=== PATIENT | female | born 1970 | race Caucasian/White ===

== ENCOUNTER → 2018-01-02 | Outpatient (CLI) | payer MEDICARE, OTHER ==
[~2018-01-02] MED LIST: ACEBUTCAFT PO; ACET500 PO; ALBU90OI PO; AMOCLA875 PO; ASPI81CH PO; AZIT250 PO; Advair Hfa 230-12 GM; BUPAP 50 MG-301 EACH PO; CEFU500T30 PO; Coumadin6 MG PO; DIAZ10 PO; DIAZ5 PO; DOCU100 PO; Diazepam10 MG PO; ENOX100I SC; Esgic Tablet1 EACH PO; FLUSAL2505 INH; FLUT1DIS5 INH; GABA300 PO; HYDHCL25 PO; HYDMOR2 PO; Ibuprofen Ib200 MG PO; LAVAP17G PO; LEVSOD125 PO; LEVSOD50 PO; LEVSOD75 PO; LIOT5 PO; LOVA40 PO; METR500 PO; Neurontin800 MG PO; OMEP20ER PO; OXYACE5T PO; PRAZOSIN PO; PRED20 PO; PROVERA PO; Percocet 5-3251 EACH PO; Prednisone20 MG PO; Prilosec Otc20 MG PO; QUET100 PO; QUET200 PO; QUET25 PO; ROXICODONE5 MG PO; TETR250 PO; TOPI25 PO; TOPI50 PO; TRAM50 PO; TRAZ50 PO; TRIA80TC TOP; WARF10 PO; XARELTO20 MG PO; Zofran Odt4 MG SL
== END ==
LOC: LAB SHORT 10:00 → LAB 10:00 → LAB FUT 01-01 10:15
DX: Z13.1 Encounter for screening for diabetes mellitus (principal); K62.5 Hemorrhage of anus and rectum; R19.7 Diarrhea, unspecified; E03.9 Hypothyroidism, unspecified; E78.2 Mixed hyperlipidemia
CPT/HCPCS: 87015; 87045; 87046; 87205; 87338; 87899

== ENCOUNTER 2018-01-13 21:30 | Emergency (ER) | payer MEDICARE, OTHER ==
[~2018-01-13] VITALS: Ht 160 cm; Wt 81.7 kg
[~2018-01-13 21:30] MED LIST changes: -AZIT250 PO; -Advair Hfa 230-12 GM; -CEFU500T30 PO; -Esgic Tablet1 EACH PO; -FLUT1DIS5 INH; -METR500 PO; -PRED20 PO; -TETR250 PO; -Zofran Odt4 MG SL
[2018-01-13 22:11] LABS: BASOPHILS ABSOLUTE AUTO 0.04 K/mm3 (0.00-0.23); BASOPHILS PERCENT AUTO 1 % (0-2); EOSINOPHILS ABSOLUTE AUTO 0.48 K/mm3 (0.00-0.68); EOSINOPHILS PERCENT AUTO 7 % (0-6); Hematocrit 42.5 % (33.0-51.0); Hemoglobin 14.7 g/dL (11.5-16.0); IMMATURE GRAN ABSOLUTE AUTO 0.01 K/mm3 (0.00-0.10); IMMATURE GRAN PERCENT AUTO 0 % (0-1); LYMPHOCYTES ABSOLUTE AUTO 2.29 K/mm3 (0.84-5.20); LYMPHOCYTES PERCENT AUTO 34 % (21-46); MONOCYTES ABSOLUTE AUTO 0.33 K/mm3 (0.16-1.47); MONOCYTES PERCENT AUTO 5 % (4-13); Mean Corpuscular HGB 31.8 pg (26.0-34.0); Mean Corpuscular HGB Conc 34.6 g/dL (31.5-36.5); Mean Corpuscular Volume 92 fL (80-100); Mean Platelet Volume 9.4 fL (9.1-12.4); NEUTROPHILS ABSOLUTE AUTO 3.69 K/mm3 (1.96-9.15); NEUTROPHILS PERCENT AUTO 54 % (41-73); Platelet Count 233 K/mm3 (150-400); RDW Coefficient Variation 12.6 % (11.7-14.2); RDW Standard Deviation 42.4 fL (35.1-46.3); Red Blood Cell Count 4.62 M/mm3 (3.80-5.20); White Blood Cell Count 6.84 K/mm3 (4.00-11.30)
[2018-01-13 22:26] LABS: Alanine Aminotransfer (ALT/SGP 22 U/L (12-78); Albumin/Globulin Ratio 1.1 (0.8-1.8); Alk Phos 36 U/L (50-136); Anion Gap 11 mmol/L (6-16); Aspartate Aminotrans (AST/SGOT 14 U/L (12-37); Bilirubin, Total 0.6 mg/dL (0.1-1.0); Blood Urea Nitrogen 21 mg/dL (8-24); Bun/Creatinine Ratio 20.2 (12.0-20.0); CO2, Blood 18 mmol/L (21-32); Calcium, Blood 8.8 mg/dL (8.5-10.1); Chloride, Blood 113 mmol/L (98-108); Creatinine, Blood 1.04 mg/dL (0.40-1.00); Globulin, Blood 3.6 g/dL (2.2-4.0); Glomerular Filtration Rate >60 (60-); Glucose, Blood 83 mg/dL (70-99); Potassium, Blood 3.9 mmol/L (3.5-5.5); Sodium, Blood 142 mmol/L (136-145); Total Protein, Blood 7.6 g/dL (6.4-8.2)
[2018-01-13] MEDS ORDERED: TETR250 PO (22:41)
[2018-01-13] MEDS ORDERED: METR500 PO (22:41)
[2018-01-13 23:23] LABS: Source, Urine Clean Catch
[2018-01-13 23:26] LABS: Bilirubin, Urine Neg (Neg); Blood, Urine Neg (Neg); Glucose Qualitative, Urine Neg (Neg); Ketones, Urine 3+ (Neg); Leukocyte Esterase, Urine 1+ (Neg); Nitrite, Urine Neg (Neg); Protein, Urine Neg (Neg); Specific Gravity, Urine 1.025 (1.003-1.022); Urobilinogen, Urine NORM (Normal)
[2018-01-13 23:38] LABS: Appearance, Urine Clear (Clear); Bacteria Rare /hpf; Color, Urine Yellow (P-Yellow); Red Blood Cells, Urine 0-2 /hpf (0-2); Squamous Epithelial Cells Rare /hpf (Few); White Blood Cells, Urine 0-2 /hpf (0-5)
[2018-01-13] MEDS ORDERED: Zofran Odt4 MG SL (23:50)
[2018-09-29] MEDS ORDERED: Esgic Tablet1 EACH PO (02:25)
[2018-09-29] MEDS ORDERED: Advair Hfa 230-12 GM (02:25)
[2018-09-29] MEDS ORDERED: LEVSOD75 PO (08:24)
[2018-09-29] MEDS ORDERED: LIOT5 PO (08:26)
[2018-09-29] MEDS ORDERED: FLUT1DIS5 INH (08:30)
[2018-10-01] MEDS ORDERED: CEFU500T30 PO (12:36)
[2018-10-01] MEDS ORDERED: AZIT250 PO (12:36)
[2018-10-01] MEDS ORDERED: PRED20 PO (12:37)
== END 2018-01-14 00:12 | disposition home or self-care (01) ==
LOC: ER 21:30
PROVIDERS: Emergency Medicine
DX: G43.909 Migraine, unspecified, not intractable, without status migrainosus (principal); D64.9 Anemia, unspecified; Z86.73 Personal history of transient ischemic attack (TIA), and cerebral infarction without residual deficits; Z79.899 Other long term (current) drug therapy; Z87.891 Personal history of nicotine dependence
CPT/HCPCS: 36415; 80053; 81001; 83690; 85025; 96374; 96375; 99283; J0780; J1200; J1885; J2405

== ENCOUNTER → 2018-01-16 | Outpatient (CLI) | payer MEDICARE, OTHER ==
[~2018-01-16] MED LIST changes: +AZIT250 PO; +Advair Hfa 230-12 GM; +CEFU500T30 PO; +Esgic Tablet1 EACH PO; +FLUT1DIS5 INH; +METR500 PO; +PRED20 PO; +TETR250 PO; +Zofran Odt4 MG SL
[2018-01-17 12:02] LABS: Candida species (DNA Probe) Positive (NEGATIVE); G. vaginalis (DNA Probe) Negative (NEGATIVE); T. vaginalis (DNA Probe) Negative (NEGATIVE)
== END ==
LOC: LAB 17:00
PROVIDERS: Nurse Practitioner Family
DX: R10.2 Pelvic and perineal pain (principal)
CPT/HCPCS: 87480; 87510; 87660